=== PATIENT | male | born 1985 | race Caucasian/White ===

== ENCOUNTER 2017-04-18 11:40 | Emergency (ER) | payer BC ==
--- NOTE | ~2017-04-18 | CT2 ---
[facility] A Service [facility] RADIOLOGY TEXT RESULTS PATIENT: CELIA IBRAHIM LOCATION: SED : 83 UNIT #: [id number] AGE: [address]: CARMELA OWEN SEX: M ORDER DR: [id number] [place] [id number] E MR#: [id number] Acc #: [id number] NAME: CELIA IBRAHIM. : 1985 SEX: M STUDY DATE/TIME: 04/18/2017 13:18 UNIT: SED ROOM: STUDY DESCRIPTION: CT Abd and Pelv W Cont Attending Physician: Carmela Owen Aprn Ordering Physician: Carmela Owen Aprn Primary Care Physician: No Primary Care Physician MEDICAL IMAGING REPORT This report is preliminary unless electronic signature is present. EXAM CT abdomen and pelvis with contrast. INDICATION Generalized abdominal pain and nausea since this morning. Periumbilical and upper abdominal pain since this morning. PROCEDURE Contrast-enhanced CT of the abdomen and pelvis. This CT exam was performed with one or more of the following radiation dose reduction techniques: automatic exposure control, adjustment of mA and/or kV according to patient size, and iterative reconstruction. COMPARISON None FINDINGS Included lung bases are clear. ABDOMEN WITH CONTRAST: Liver, spleen, kidneys, adrenal glands, pancreas, gallbladder unremarkable. Bowel loops are nondilated. The appendix is not well seen on this study but there is no pericecal inflammation. PELVIS WITH CONTRAST: No pelvic mass or fluid. No aggressive appearing bone lesion. There are bilateral L5 pars defects but no significant anterolisthesis. IMPRESSION 1. No clearly acute finding in the abdomen or pelvis. 2. Appendix is not well seen but no pericecal inflammation. 3. L5 pars defects. [facility] A Service [facility] RADIOLOGY TEXT RESULTS PATIENT: CELIA IBRAHIM LOCATION: SED : 83 UNIT #: [id number] AGE: [address]: CARMELA OWEN SEX: M ORDER DR: Dictated by... Nicholas Huizar M.D. THIS IS AN ELECTRONICALLY VERIFIED REPORT Nicholas Huizar M.D. at 04/19/2017 7:09 AM DENISA/jessy TD: 04/18/2017 16:58 JOB #: [id number] MEDICAL IMAGING REPORT Page 1 of 1
[2017-04-18 12:36] LABS: BASOPHIL# 0.1 X10e3 (0-0.3); BASOPHIL% 0.6 % (0-2.5); EOSINOPHIL# 0.2 X10e3 (0-0.7); EOSINOPHIL% 1.9 % (0.0-7.0); HEMATOCRIT 43.3 % (38.0-50.0); LYMPHOCYTE# 2.3 X10e3 (1.0-3.5); LYMPHOCYTE% 26.1 % (17.0-45.0); MEAN CELL VOLUME 92.2 FL (83-96); MEAN CORPUSCULAR HEMOGLOBIN 31.9 PG (28-34); MEAN CORPUSCULAR HGB CONC 34.5 g/dL (30-36); MEAN PLATELET VOLUME 7.5 FL (6.5-11.5); MONOCYTE# 0.8 X10e3 (0-1.0); NEUTROPHIL# 5.5 X10e3 (1.5-7.1); NEUTROPHIL% 62.4 % (40-75); PLATELET COUNT 286 X10e3 (140-420); RED BLOOD COUNT 4.69 X10e (3.90-5.60); RED CELL DISTRIBUTION WIDTH 13.2 % (11.0-15.5); WHITE BLOOD COUNT 8.9 X10e3 (4.0-10.5)
[2017-04-18 12:37] LABS: DIFF IND NO
[2017-04-18 12:55] LABS: ALBUMIN SERUM 4.4 g/dL (3.5-5.0); BILIRUBIN, DIRECT 0.1 mg/dL (0.0-0.2); BILIRUBIN,INDIRECT 0.6 mg/dL (0.0-0.9); BILIRUBIN,TOTAL 0.7 mg/dL (0.2-2.0); BUN/CREATININE RATIO 11.81; CALCIUM SERUM 9.5 mg/dL (8.4-10.2); CREATININE SERUM 1.1 mg/dL (0.6-1.4); GLOM FILT RATE Estimated 88.4 mL/min (>60); POTASSIUM 3.9 mmol/L (3.5-5.1); PROTEIN TOTAL SERUM 7.2 g/dL (6.0-8.3)
[2017-04-18 13:35] LABS: URINE APPEARANCE CLEAR; URINE BILIRUBIN NEG (NEG); URINE BLOOD NEG (NEG); URINE COLOR YELLOW; URINE GLUCOSE NEG (NORM); URINE KETONE NEG (NEG); URINE LEUKOCYTE ESTERASE NEG (NEG); URINE NITRATE NEG (NEG); URINE PROTEIN NEG (NEG); URINE UROBILINOGEN 0.2 MG/DL (NORM)
[2017-04-18 13:36] LABS: MICRO INDICATED? NO; URINE SOURCE CLEAN CATCH
== END 2017-04-18 14:35 | disposition home or self-care (01) ==
LOC: SED 11:40
PROVIDERS: Nurse Practitioner Family
DX: K29.00 Acute gastritis without bleeding (principal); F17.210 Nicotine dependence, cigarettes, uncomplicated; Z88.0 Allergy status to penicillin
CPT/HCPCS: 36415; 74177; 80048; 80076; 81003; 82150; 83690; 85025; 86677; 96374; 96375; 99284; J1885; Q9967